=== PATIENT | male | born 1990 | race Caucasian/White ===

== ENCOUNTER 2025-05-25 08:51 | Outpatient (REF) | payer OTHER, SELFPAY ==
[2025-05-25 13:55] LABS: Appearance Urine Clear; Glucose Urine UA Negative (Negative); PH 5.5 (5.0-9.0); Specific Gravity - Urine 1.015 (1.005-1.025)
[2025-05-25 13:56] LABS: MANUAL DIFF FLAG NO
[2025-05-25 14:00] LABS: Hematocrit 48.3 % (42.0-52.0); Hemoglobin 16.0 g/dl (14.0-18.0); Imm Gran Abs Auto 0.01 X10*3/uL (0.00-0.03); Imm Gran Pct Auto 0.2 % (0.0-0.4); Lymphocytes Absolute Auto 1.3 X10*3/uL (1.2-4.9); Mean Corpuscular HGB Conc 33.1 g/dl (31.0-36.0); Mean Corpuscular Hemoglobin 27.8 pg (27.0-33.0); Mean Corpuscular Volume 84.0 fL (80.0-98.0); NRBC Abs Auto 0.000 X10*3/uL (0.0-0.012); NRBC Pct Auto 0.0 /100WBC (0.0-0.2); Platelet Count 290 X10*3/uL (160-400); Red Blood Count 5.75 X10*6/uL (4.60-5.80); White Blood Count 5.3 X10*3/uL (4.8-10.8)
[2025-05-25 14:53] LABS: Alanine Aminotransferase 22 U/L (0-40); Albumin Level 4.9 g/dL (3.5-5.0); Alkaline Phosphatase 56 U/L (39-117); Anion Gap 15 (12-20); Aspartate Amino Transferase 38 U/L (5-37); Blood Urea Nitrogen 14 mg/dL (9-16); Calcium 9.5 mg/dL (8.4-10.2); Carbon Dioxide 27 mmol/L (22-29); Chloride 105 mmol/L (96-108); Cholesterol 155 mg/dL (<200); Estimated Glomerular Filt Rate > 60; HDL Cholesterol 74 mg/dL (>40); Magnesium 2.3 mg/dL (1.6-2.6); Potassium 4.4 mmol/L (3.3-5.1); Sodium 143 mmol/L (135-145); Total Protein 7.7 g/dL (6.5-8.0); Triglycerides 38 mg/dL (<150)
[2025-05-25 15:24] LABS: Folate 7.8 ng/mL (> or = 4.0); Vitamin B12 277 pg/mL (200-900)
[2025-05-25 15:39] LABS: CT PCR Urine NOT DETECTED (Not Detect.); NG PCR Urine NOT DETECTED (Not Detect.)
[2025-05-26 04:17] LABS: Syphilis Screen Nonreactive (Nonreactive)
[2025-05-26 04:57] LABS: HBS Num1 0.00 mIU/mL (0-7.99); HBsAGNum1 0.50 S/CO (0.00-0.99); HIV Num 1 0.06 S/CO (0.00-0.99); Hepatitis B Surface Antigen Negative (Negative); ~HepC Num1 0.16 S/CO (0.00-0.79); ~Hepatitis B Surface Antibody NONREACTIVE (Nonreactive); ~Hepatitis C Antibody Nonreactive (Nonreactive)
[2025-05-30 06:28] LABS: Vitamin D 25-OH, D2 <4 ng/mL; Vitamin D 25-OH, D3 26 ng/mL; Vitamin D 25-OH, Total 26 ng/mL (30-100)
[2025-05-31 20:23] LABS: Testosterone, Free 109.8 pg/mL (35.0-155.0)
== END 2025-05-25 08:52 | disposition home or self-care (01) ==
LOC: HO.HKASLDS 08:51
PROVIDERS: PCP Student in an Organized Health Care Education/Training Program; Visit Provider Student in an Organized Health Care Education/Training Program
DX: Z13.9 Encounter for screening, unspecified (principal); Z23 Encounter for immunization; F10.10 Alcohol abuse, uncomplicated; F41.9 Anxiety disorder, unspecified; F32.A Depression, unspecified; G47.00 Insomnia, unspecified; K59.00 Constipation, unspecified; R39.11 Hesitancy of micturition; Z72.51 High risk heterosexual behavior; Z87.891 Personal history of nicotine dependence
CPT/HCPCS: 80053; 80061; 81003; 82306; 82607; 82746; 83036; 83735; 84402; 84403; 84425; 84443; 85025; 86706; 86780; 86803; 87340; 87389; 87491; 87591; 90471; 90656; 96127

== ENCOUNTER 2025-05-25 08:51 | Outpatient (AMB) | payer OTHER, SELFPAY ==
--- NOTE | 2025-05-25 08:54 | A.OFFPC_ITS ---
Vital Signs 05/25/25 09:06 Height 6 ft 1.07 in Weight 183 lb 6 oz BMI 24.1 BP 139/58 L Blood Pressure Location Rt brachial Position Sitting Pulse 107 H Pulse Source Pulse Oximeter Temp 98.1 F Temp Source Oral Pulse Oximetry (%) 97 Oxygen Delivery Method Room Air Intake Visit Reasons: [employer] HERBARI[employer]-anxiety Intake Note: Wants to discuss nicotine therapy to help with smoking cessation Accompanied by: Self / Same As Patient Allergies No Known Allergies Allergy (Verified 05/25/25 08:54) Tobacco use date assessed: 05/25/25 Dental Screening Dental Screen Date: 05/25/25 Did you have a dental visit in the last 12 months?: No PFSH Family History (Updated 05/25/25 @ 09:02 by Loreto Angela [facility]) Mother Anxiety Depression Father Depression Suicide Anxiety Social History Housing: Apartment Patient Tobacco Use Status: Former Tobacco user e-Cigarette/Vaping Use: Never Used service: No Current occupational status: employed Cognitive needs: No Hearing needs: No Vision needs: No Questionnaire PHQ-9 Over the last 2 weeks, how often have you been bothered by any of the following problems? 1. Little interest or pleasure in doing things: several days 2. Feeling down, depressed, or hopeless: several days 3. Trouble falling or staying asleep, or sleeping too much: several days 4. Feeling tired or having little energy: several days 5. Poor appetite or overeating: not at all 6. Feeling bad about yourself - or that you are a failure or have let yourself or your family down: several days 7. Trouble concentrating on things, such as reading the newspaper or watching television: several days 8. Moving or speaking so slowly that other people could have noticed. Or the opposite - being so fidgety or restless that you have been moving around a lot more than usual: not at all 9. Thoughts that you would be better off or of hurting yourself in some way: not at all Total score: 6 Depression Screening Interpretation: Negative Depression Screening Done: Yes Source: Developed by Drs. Gunnar Gotti, Nel Mora, Az Robledo and colleagues, with an educational karina from [employer]. Thrive Questionnaire Date Thrive assessed: 05/25/25 I am a: Patient What is your living situation today?: I have a steady place to live Within the past 12 months, did the food you bought not last and you didn't have the money to get more?: Never true Within the past 12 months, did you worry whether your food would run out before you got money to buy more?: Never true Do you have trouble paying for medicines?: No Do you have trouble getting transportation to medical appointments?: Yes Do you have trouble paying your heating and electricity bill?: No Do you have trouble taking care of your child, family member or friend?: No Do you have trouble with day-to-day activities such as bathing, preparing meals, shopping, managing finances, etc.?: No Are you currently unemployed and looking for a job?: No Are you interested in more education?: No Please select the resources that you would like help with: None Currently or been in a relationship where the following occur: I choose not to answer THRIVE Score: 1 AUDIT C Alcohol Use Questionnaire (AUDIT-C) 1. How often do you have a drink containing alcohol?: Never Total Score: 0 ERIC-7 AMB Questionnaire ERIC-7 Date ERIC - 7 assessed: 05/25/25 Feeling nervous, anxious, or on edge: 1 = Several days Not being able to stop or control worryin = Several days Worrying too much about different things: 1 = Several days Trouble relaxin = Several days Being so restless that it is hard to sit still: 1 = Several days Becoming easily annoyed or irritable: 1 = Several days Feeling afraid as if something awful might happen: 2 = More than half the days Total ERIC-7 score (0-4 normal; 5-9 mild; 10-14 moderate; 15-21 severe): 8 Source: Developed by Drs. Gunnar Gotti, Nel Mora, Az Robledo and colleagues, with an educational karina from [employer]. Physical exam (Primary Care) Vital Signs: Last Vital Signs Temp 98.1 F 05/25/25 09:06 Pulse 107 H 05/25/25 09:06 BP 139/58 L 05/25/25 09:06 Pulse Ox 97 05/25/25 09:06 Oxygen Delivery Method Room Air 05/25/25 09:06 Tobacco/Smoking Status: Tobacco use Status Tobacco use date assessed 05/25/25 05/25/25 08:56 Patient Tobacco Use Status Former Tobacco user 05/25/25 09:07 e-Cigarette/Vaping Use Never Used 05/25/25 08:56 PHQ-9: PHQ-9 Score PHQ-9: Total score 6 05/25/25 08:56 Depression Screening Interpretation: Negative Thrive Assessment: Date of Thrive Assessment Date Thrive assessed 05/25/25 05/25/25 08:56 Currently or been in a relationship where the following occur: I choose not to answer Office Procedures Flu Questionnaire Does the patient have a severe egg allergy?: No Does the patient have severe life threatening allergies?: No Does the patient have a fever or illness today?: No Has the patient ever had Guillain-Lismore Syndrome?: No Has the patient ever had any past reaction to a flu shot?: No Immunizations Fluarix [id number] (PF) 45 mcg (15 mcg x 3)/0.5 mL IM syringe Performing Provider: Young Cedillo MD [facility] [place] [facility] Administered by: Loreto Angela CMA on 05/25/25 09:10 Dose Route Admin Location Dispensed Lot Number Expiration Date [facility] 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
[2025-05-25 09:06] VITALS: BP 139/58; PULSE 107; TEMP 36.7; O2SAT 97; BMI 24.1
== END 2025-05-25 09:27 | disposition home or self-care (01) ==
LOC: HO.HMCFMS 08:52
PROVIDERS: PCP Student in an Organized Health Care Education/Training Program; Visit Provider Student in an Organized Health Care Education/Training Program
DX: Z23 Encounter for immunization (principal)

== ENCOUNTER 2025-06-08 09:50 | Outpatient (AMB) | payer OTHER, SELFPAY ==
--- NOTE | 2025-06-08 09:55 | A.OFFPC_ITS ---
Vital Signs 06/08/25 09:59 Height 6 ft 1.07 in Weight 181 lb 2 oz BMI 23.8 BP 122/70 Blood Pressure Location Lt brachial Position Sitting Pulse 79 Pulse Source Pulse Oximeter Temp 97.8 F Temp Source Oral Pulse Oximetry (%) 98 Intake Visit Reasons: 2 wk - lab review Accompanied by: Self / Same As Patient Allergies No Known Allergies Allergy (Verified 06/08/25 09:56) Medication List - Last Reconciled 06/08/25 by Young Cedillo MD acamprosate 666 mg PO DAILY bupropion HCl XL 150 mg PO DAILY buspirone 10 mg PO TID clonidine HCl 0.1 mg PO BID emtricitabine-tenofovir (TDF) 200-300 mg (Truvada) 1 tab PO DAILY ergocalciferol (vitamin D2) 1,250 mcg PO QWEEK 20 weeks hydroxyzine pamoate 50 mg PO BID mecobalamin (vitamin B12) 1,000 mcg sublingual BEDTIME mirtazapine 15 mg PO BEDTIME naltrexone 50 mg PO DAILY nicotine 1 patch transdermal Q24H nicotine (polacrilex) 4 mg buccal Q4H PRN polyethylene glycol 3350 17 grams PO BID quetiapine 100 mg PO BEDTIME sildenafil mg PO thiamine HCl (vitamin B1) 100 mg PO DAILY venlafaxine ER 75 mg PO DAILY Tobacco use date assessed: 06/08/25 Dental Screening Dental Screen Date: 06/08/25 Did you have a dental visit in the last 12 months?: Yes HPI HPI Comments History of Present Illness Details History of Present Illness The patient is a 34 year old male presenting for review of laboratory results and initiation of pre-exposure prophylaxis (PrEP). Encounter for HIV pre-exposure prophylaxis: The patient previously expressed a desire to start PrEP and confirmed he is still interested. Nicotine dependence: The patient is currently using nicotine patches and lozenges for smoking cessation, which he reports are helping. He has run out of lozenges but still has patches from a second box. Psychiatric History: The patient receives care from a telehealth psychiatrist but has not yet been able to obtain his medical records. He has an upcoming appointment on the . Medications: - Wellbutrin - Buspirone - Clonidine - Hydroxyzine - Mirtazapine - Naltrexone - Nicotine patches - Sildenafil - Melaxavine - Quetiapine Social History: - Substance use: The patient has a histo ry of nicotine use and is currently on nicotine replacement therapy with patches and lozenges, which he reports are helping. Diagnostic Results: - Complete blood count: White blood cell s, red blood cells, hemoglobin, hematocrit, and platelets are all within normal limits. - Chemistry panel: Sodium, potassium, ch loride, renal function, and glucose are normal. - Calcium and magnesium: Normal. - Liver function tests: Total bilirubin and albumin are normal. AST is 38 (normal <37), which is considered clinically insignificant as other liver enzymes are normal. - Lipid panel: Triglycerides, total chol esterol, LDL, and HDL are normal. - Thiamine (Vitamin B1): 16 (range 8-30) , which is low-normal. - Vitamin B12: 277 (range 200-900), whic h is in the low end of the normal range. - Vitamin D: 26 (range 30-100), which is low. - Thyroid function tests: Normal. - Total testosterone: Normal. - Urinalysis: Normal. - Infectious disease screening: Negative for syphilis, hepatitis B, hepatitis C, and HIV. Past Medical History - Psychiatric history: The patient is un ammon the care of a telehealth psychiatrist and takes multiple psychotropic medications. - Nicotine dependence: Actively using ni cotine replacement therapy. Health Maintenance - The patient's recent screening labs we re reviewed, which included a CBC, chemistry panel, lipid panel, vitamin levels, and infectious disease panel. - Discussed and initiated HIV pre-exposu re prophylaxis (PrEP) with Truvada. [facility] Medical History Risky sexual behavior Nicotine use Urinary hesitancy Constipation Alcohol abuse Insomnia Anxiety and depression Family History Mother Anxiety Depression Father Depression Suicide Anxiety Social History Housing: Apartment Patient Tobacco Use Status: Former Tobacco user e-Cigarette/Vaping Use: Never Used service: No Current occupational status: employed Cognitive needs: No Hearing needs: No Vision needs: No Questionnaire PHQ-9 Over the last 2 weeks, how often have you been bothered by any of the following problems? 1. Little interest or pleasure in doing things: several days 2. Feeling down, depressed, or hopeless: several days 3. Trouble falling or staying asleep, or sleeping too much: several days 4. Feeling tired or having little energy: several days 5. Poor appetite or overeating: not at all 6. Feeling bad about yourself - or that you are a failure or have let yourself or your family down: several days 7. Trouble concentrating on things, such as reading the newspaper or watching television: several days 8. Moving or speaking so slowly that other people could have noticed. Or the opposite - being so fidgety or restless that you have been moving around a lot more than usual: not at all 9. Thoughts that you would be better off or of hurting yourself in some way: not at all Total score: 6 Depression Screening Interpretation: Negative Depression Screening Done: Yes Source: Developed by Drs. Gunnar Gotti, Nel Mora, Az Robledo and colleagues, with an educational karina from [employer]. Thrive Questionnaire Date Thrive assessed: 06/08/25 I am a: Patient What is your living situation today?: I have a steady place to live Within the past 12 months, did the food you bought not last and you didn't have the money to get more?: Never true Within the past 12 months, did you worry whether your food would run out before you got money to buy more?: Never true Do you have trouble paying for medicines?: No Do you have trouble getting transportation to medical appointments?: Yes Do you have trouble paying your heating and electricity bill?: No Do you have trouble taking care of your child, family member or friend?: No Do you have trouble with day-to-day activities such as bathing, preparing meals, shopping, managing finances, etc.?: No Are you currently unemployed and looking for a job?: No Are you interested in more education?: No Please select the resources that you would like help with: None Currently or been in a relationship where the following occur: I choose not to answer THRIVE Score: 1 AUDIT C Alcohol Use Questionnaire (AUDIT-C) 1. How often do you have a drink containing alcohol?: Never Total Score: 0 ERIC-7 AMB Questionnaire ERIC-7 Date ERIC - 7 assessed: 06/08/25 Feeling nervous, anxious, or on edge: 1 = Several days Not being able to stop or control worryin = Several days Worrying too much about different things: 1 = Several days Trouble relaxin = Several days Being so restless that it is hard to sit still: 1 = Several days Becoming easily annoyed or irritable: 1 = Several days Feeling afraid as if something awful might happen: 2 = More than half the days Total ERIC-7 score (0-4 normal; 5-9 mild; 10-14 moderate; 15-21 severe): 8 Source: Developed by Drs. Gunnar Gotti, Nel Mora, Az Robledo and colleagues, with an educational karina from [employer]. Review of Systems Narrative Review of Systems 10-point ROS reviewed and negative except as noted in HPI Physical exam (Primary Care) Vital Signs: Last Vital Signs Temp 97.8 F 06/08/25 09:59 Pulse 79 06/08/25 09:59 BP 122/70 06/08/25 09:59 Pulse Ox 98 06/08/25 09:59 BMI result Body Mass Index 23.8 Tobacco/Smoking Status: Tobacco use Status Tobacco use date assessed 06/08/25 06/08/25 09:57 Patient Tobacco Use Status Former Tobacco user 06/08/25 09:57 e-Cigarette/Vaping Use Never Used 06/08/25 09:57 PHQ-9: PHQ-9 Score PHQ-9: Total score 6 06/08/25 10:05 Depression Screening Interpretation: Negative Thrive Assessment: Date of Thrive Assessment Date Thrive assessed 06/08/25 06/08/25 10:03 Currently or been in a relationship where the following occur: I choose not to answer Narrative Physical Exam General: Well-appearing, in no acute distress. Vital signs: Within normal limits. HEENT: Normocephalic, atraumatic. PERRLA, EOMI. Conjunctiva clear, sclera anicteric. Oropharynx clear, mucous membranes moist. TMs intact bilaterally. Neck: Supple, no lymphadenopathy, no thyromegaly, no JVD or carotid bruits. Cardiovascular: RRR, normal S1/S2, no murmurs, rubs, or gallops. Peripheral pulses 2+ and symmetric. No edema. Respiratory: Lungs clear to auscultation bilaterally, no wheezes, rales, or rhonchi. Normal effort. Abdomen: Soft, non-tender, non-distended. Normoactive bowel sounds. No hepatosplenomegaly, no masses. MSK: Full range of motion, no joint swelling or deformity. Normal gait. Skin: Warm, dry, intact. No rashes, lesions, or pallor. Neuro: Alert and oriented x3. Cranial nerves II-XII intact. Strength 5/5 throughout. Sensation intact. Reflexes 2+ symmetric. Normal coordination and gait. Psych: Appropriate mood and affect. Normal judgment and insight. Office Procedures Flu Questionnaire Does the patient have a severe egg allergy?: No Does the patient have severe life threatening allergies?: No Does the patient have a fever or illness today?: No Has the patient ever had Guillain-[place]uda Syndrome?: No Has the patient ever had any past reaction to a flu shot?: No Immunizations Fluarix [id number] (PF) 45 mcg (15 mcg x 3)/0.5 mL IM syringe Performing Provider: Young Cedillo MD Performing Location: [facility] [place] [facility] Documented (not given) by: Loreto Angela CMA on 06/08/25 10:05 Reason Not Given: Received Previously Coding Level of Care Code Est Pt Level 3 (94026) Add On Problem Visit Only Diagnoses Alcohol abuse F10.10 Anxiety and depression F41.9; F32.A Risky sexual behavior Z72.51 Nicotine use Z72.0 Low vitamin B12 level R79.89 Low vitamin D level R79.89 Thiamine deficiency E51.9 Assessment & Plan Assessment & Plan (1) Alcohol abuse: Code(s): F10.10 - Alcohol abuse, uncomplicated Category: Medical (2) Anxiety and depression: Code(s): F41.9 - Anxiety disorder, unspecified; F32.A - Depression, unspecified Category: Medical (3) Risky sexual behavior: Code(s): Z72.51 - High risk heterosexual behavior Category: Medical (4) Nicotine use: Code(s): Z72.0 - Tobacco use Category: Medical (5) Low vitamin B12 level: Code(s): R79.89 - Other specified abnormal findings of blood chemistry Category: Medical (6) Low vitamin D level: Code(s): R79.89 - Other specified abnormal findings of blood chemistry Category: Medical (7) Thiamine deficiency: Code(s): E51.9 - Thiamine deficiency, unspecified Category: Medical Plan Consent Patient was informed and verbally consented to the use of an ambient scribe for clinic note documentation during this visit. Plan 1. Thiamine Deficiency - Although the patient's thiamine level is technically within the normal range, it is on the low side. - Prescribed thiamine supplement to be taken daily. 2. Vitamin B12 Deficiency - The patient's vitamin B12 level is at the low end of the normal range. - Prescribed vitamin B12 supplement to be taken daily. 3. Vitamin D Deficiency - The patient's vitamin D level of 26 is below the recommended range of 30-100. - Prescribed a vitamin D supplement to be taken once a week. 4. Encounter For Hiv Pre-Exposure Prophylaxis - The patient confirmed his continued interest in starting PrEP. - He meets the criteria for initiation, as his renal function is good and he is negative for HIV and other STDs. - Prescribed Truvada to be taken once daily. - Instructed the patient to take the medication at the same time each day without missing doses. - A one-month supply will be provided, with a plan to repeat labs in one month to monitor kidney and liver function. 5. Nicotine Dependence - The patient reports that nicotine replacement therapy is helping. - A prescription for nicotine lozenges will be sent to the pharmacy as he has run out. Discussion Notes I reviewed the patient's recent lab results with him, noting that his complete blood count, kidney function, and lipid panel were all normal. I explained that a slightly elevated AST of 38 was not concerning given that his other liver enzymes were normal. We discussed his low levels of thiamine, vitamin B12, and vitamin D, and I informed him that I would be prescribing supplements for these deficiencies. We discussed his continued interest in starting pre-exposure prophylaxis (PrEP). I confirmed that he meets the criteria for initiation based on his negative HIV test and good renal function. I have prescribed Truvada daily, advising him on the importance of adherence, and explained that we will repeat labs in one month to monitor for any side effects. I also informed him that I will send a refill for his nicotine lozenges to the pharmacy. Patient Instructions - Take one thiamine pill each day. - Take one vitamin B12 pill each day. - Take one vitamin D pill once a week. - Take your new medication, Truvada, one time every day at the same time. - Do not miss any doses of Truvada. - You will need to come back in one month for more blood tests to make sure the Truvada is not affecting your kidneys or liver. - The pharmacy will have a refill of your nicotine lozenges ready for you. - Please sign a release form at the [facility] so that we can request your medical records from your psychiatry provider. Medical Decision Making The patient is a 34-year-old male who presented for a follow-up visit to review lab results and discuss the initiation of HIV PrEP. His laboratory evaluation was largely unremarkable, including a normal CBC, CMP with normal renal function, and a normal lipid panel. A minimally elevated AST was noted but considered clinically insignificant in the context of otherwise normal liver function studies. Lab work did reveal low-normal vitamin B12 and thiamine levels, as well as a vitamin D deficiency. Supplementation for each of these deficiencies has been prescribed. The patient reaffirmed his interest in starting PrEP. He meets initiation criteria with negative HIV status and normal renal function. Truvada was prescribed with a plan for a one-month follow-up with repeat labs to monitor for any adverse effects on renal or hepatic function before continuing long-term therapy. A refill for nicotine lozenges was also provided to support his ongoing smoking cessation efforts. Total Time Statement 20 min Total time spent caring for the patient today includes pre-visit chart review, documentation, review of laboratory and diagnostic imaging results, medication reconciliation, medically necessary evaluation, counseling on diagnoses, care coordination, ordering appropriate tests and medications, review of tests performed by other providers, reporting test results to the patient, and communication with other healthcare providers. Orders: Orders Influenza [id number] Immunization Today Z23 - Encounter for immunization Medications: New ergocalciferol (vitamin D2) 1,250 mcg PO QWEEK 20 caps 0RF 20 weeks thiamine HCl (vitamin B1) 100 mg PO DAILY 90 caps 0RF mecobalamin (vitamin B12) place tablet under tongue and allow to dissolve for at least30 secs before swallowing 1,000 mcg sublingual BEDTIME 90 tabs 0RF emtricitabine-tenofovir (TDF) 200-300 mg (Truvada) 1 tab PO DAILY 30 tabs 0RF Refilled nicotine (polacrilex) 4 mg buccal Q4H PRN 81 ea 0RF nicotine cravings
--- OUTSIDE RECORDS SUMMARY | 2025-06-08 09:57 | XMS_ITS | Clinical Summary ---
Author Organization [facility] Address [address] [place] [phone] Phone Care Team Providers Care Regulatory Affairs Assistant Name Role Phone Pcp, Unknown Primary Care Provider Unavailabl e Allergies Active Allergy Reactions Criticality Noted Date Comments Trazodone 01/05/2025 Medications No known medications Immunizations Immunization Administration Dates Next Due Tdap 01/05/2025 Social History Tobacco Use Types Packs/Day Years Used Date Smoking Tobacco: Every Day Cigarettes Smokeless Tobacco: Never Tobacco Cessation:Ready to Q uit: Not Asked; Counseling Given: Not Answered Alcohol Use Standard Drinks/Week Comments Yes 0 (1 standard drink = 0.6 oz pur e alcohol) Education Answer Date Recorded Are you interested in more education? Not on chris e 01/05/2025 Are you concerned about learning? Not on file 01/05/2025 No 01/05/2025 No 01/05/2025 Food Answer Date Recorded Within the past 6 months we worried whether our food would run out before we got money to buy more. Never True 01/05/2025 Within the past 6 months the food we bought just didn't last and we didn't have enough money to get more. Never True Residential Stability Answer Date Recor ded What is your housing situation today? I have jeremy sing 01/05/2025 How many times have you move d in the past 12 months? Zero (I did not move) 01/05/2025 Paying for Meds Answer Date Recorded Do you have trouble paying for medicines? No 01/05/2025 Paying Utility Bills Answer Date Record ed Do you have trouble paying your heating or elect ricity bill? No 01/05/2025 Transportation Answer Date Recorded Has the lack of transportati on kept you from medical appointments or from getting medications? No 01/05/2025 Digital Access Answer Date Recorded No 01/05/2025 Yes 01/05/2025 Do you have reliable internet access at home? Ye s 01/05/2025 Do you have a device (e.g., phone, tablet, computer) with a working camera? Yes 01/05/2025 Intimate Partner Violence Answer Date R ecorded Are you denied basic needs s uch as food, clothing, or medical care? No 01/05/2025 In the past 12 months have y ou been in a relationship with a person who hurts, threatens, or tries to control you? No 01/05/2025 Are you denied basic needs s uch as food, clothing, or medical care? No 01/05/2025 In the past 12 months have y ou been in a relationship with a person who hurts, threatens, or tries to control you? No 01/05/2025 Sex and Gender Information Value Date Recorded Sex Assigned at Male 01/05/2025 2:53 PM EDT Legal Sex Male 2:48 PM EDT Gender Identity Male 01/05/2025 2:53 PM EDT Sexual Orientation Straight 01/05/2025 2: 53 PM EDT Last Filed Vital Signs Vital Sign Reading Time Taken Comments Blood Pressure 148/74 01/05/2025 4:39 PM EDT Pulse 105 01/05/2025 4:39 PM EDT Temperature 36.7 C (98.1 F) 01/05/2025 4:39 PM EDT Respiratory Rate 16 01/05/2025 4:39 PM EDT Oxygen Saturation 100% 01/05/2025 4:39 PM EDT Inhaled Oxygen Concentration - - Weight 79.4 kg (175 lb) 01/05/2025 2:54 PM EDT Height 182.9 cm (6') 01/05/2025 2:54 PM EDT Body Mass Index 23.73 01/05/2025 2:54 PM EDT Plan of Treatment Not on file Medical Devices Not on file Insurance [facility] [place] [address] [place] [address] Care Teams Regulatory Affairs Assistant Relationship Specialty Start Date End Date Pcp, Unknown PCP - General 01/05/25 Additional Source Comments The information contained in this document represents components of the legal health record. It is not the complete legal health record.[facility]
[2025-06-08 09:59] VITALS: BP 122/70; PULSE 79; TEMP 36.6; O2SAT 98; BMI 23.8
== END 2025-06-08 10:29 | disposition home or self-care (01) ==
LOC: HO.HMCFMS 09:51
PROVIDERS: PCP Student in an Organized Health Care Education/Training Program; Visit Provider Student in an Organized Health Care Education/Training Program
DX: F10.10 Alcohol abuse, uncomplicated (principal); F41.9 Anxiety disorder, unspecified; F32.A Depression, unspecified; Z72.51 High risk heterosexual behavior; Z72.0 Tobacco use; R79.89 Other specified abnormal findings of blood chemistry; E51.9 Thiamine deficiency, unspecified; Z23 Encounter for immunization

== ENCOUNTER → 2025-06-08 09:50 | Outpatient (BNVA) | payer OTHER, SELFPAY | PROVIDERS: PCP Student in an Organized Health Care Education/Training Program; Visit Provider Student in an Organized Health Care Education/Training Program | DX: E55.9 Vitamin D deficiency, unspecified (principal); F10.10 Alcohol abuse, uncomplicated; F41.9 Anxiety disorder, unspecified; F32.A Depression, unspecified; E53.8 Deficiency of other specified B group vitamins; E51.9 Thiamine deficiency, unspecified; Z28.89 Immunization not carried out for other reason; Z72.51 High risk heterosexual behavior; Z87.891 Personal history of nicotine dependence | CPT/HCPCS: 90471; 96127 ==